=== PATIENT | female | born 1985 | race Caucasian/White ===

== ENCOUNTER 2017-07-02 09:34 | Inpatient (IN) | payer BC, OTHER ==
[~2017-07-02] VITALS: Ht 160 cm; Wt 58.5 kg
[2017-07-03] MEDS ORDERED: MIRALAX 17 GM POWD.PACK PO PRN (22:45)
[2017-07-03] MEDS ORDERED: NICOTINE 14 MG/24HR PATCH TD PRN (22:45)
[2017-07-03] MEDS ORDERED: diphenhydrAMINE 50 MG CAPSULE PO PRN (22:45)
[2017-07-03] MEDS ORDERED: LORAZEPAM 1 MG TABLET PO PRN ×2 (22:45)
[2017-07-03] MEDS ORDERED: NICOTINE POLACRILEX 4 MG GUM-PK OF TEN BC PRN (22:45)
[2017-07-03] MEDS ORDERED: IBUPROFEN 400 MG TABLET PO PRN (22:45)
[2017-07-03] MEDS ORDERED: LORAZEPAM 2 MG/1 ML VIAL IM PRN (22:45)
[2017-07-03] MEDS ORDERED: MAG HYDROX/AL HYDROX/SIMETH 30 ML LIQUID UDC PO PRN (22:45)
[2017-07-03] MEDS ORDERED: MAGNESIUM HYDROXIDE 30 ML LIQUID UDC PO PRN (22:45)
[2017-07-03] MEDS ORDERED: LOPERAMIDE HCL 2 MG CAPSULE PO PRN ×2 (22:45)
[2017-07-03] MEDS ORDERED: DICYCLOMINE HCL 20 MG TABLET PO PRN (22:45)
[2017-07-03 23:11] LABS: *URINE HCG, QUAL NEGATIVE (NEGATIVE)
[2017-07-03 23:11] LABS: BASOPHILS # (AUTO) 0.1 K/uL (0.0-8.0); BASOPHILS % (AUTO) 0.5 % (0.0-2.0); EOSINOPHILS # (AUTO) 0.1 K/uL (0.0-0.7); EOSINOPHILS % (AUTO) 1.3 % (0.0-7.0); HEMATOCRIT 43.3 % (31.2-41.9); HEMOGLOBIN 14.7 g/dL (10.9-14.3); LYMPHOCYTES # (AUTO) 2.5 K/uL (20.0-40.0); LYMPHOCYTES % (AUTO) 22.8 % (20.5-51.5); MEAN CORPUSCULAR HEMOGLOBIN 32.3 uug (24.7-32.8); MEAN CORPUSCULAR HGB CONC 34 g/dL (32.3-35.6); MONOCYTES # (AUTO) 0.7 K/uL (2.0-10.0); MONOCYTES % (AUTO) 6.4 % (0.0-11.0); NEUTROPHILS # (AUTO) 7.5 K/uL (1.8-8.9); PLATELET COUNT (AUTO) 234 K/uL (179-408); RED BLOOD CELL COUNT(AUTO) 4.56 MIL/uL (3.63-4.92); WHITE BLOOD COUNT (AUTO) 10.8 K/uL (3.8-11.8)
[2017-07-03 23:13] LABS: *AMPHETAMINE, URINE NEGATIVE (NEGATIVE); *BARBITURATE, URINE NEGATIVE (NEGATIVE); *CANNABINOID, URINE NEGATIVE (NEGATIVE); *COCCAINE, URINE NEGATIVE (NEGATIVE); *OPIATE, URINE NEGATIVE (NEGATIVE); *PHENCYCLIDINE SCREEN,URINE NEGATIVE (NEGATIVE)
[2017-07-03 23:27] LABS: ALANINE AMINOTRANSFERASE 93 U/L (14-59); ALKALINE PHOSPHATASE 82 U/L (50-136); AMYLASE 44 U/L (25-115); ASPARTATE AMINOTRANSFERASE 96 U/L (15-37); BILIRUBIN,TOTAL 0.3 mg/dL (0.2-1.0); CARBON DIOXIDE 26 mmol/L (21-32); CHLORIDE 100 mmol/L (98-107); GLUCOSE 99 mg/dL (74-106); MAGNESIUM 1.5 mg/dL (1.8-2.4); TOTAL PROTEIN, SERUM 7.4 g/dL (6.4-8.2); UREA NITROGEN, BLOOD 13 mg/dL (7-18)
[2017-07-03] MEDS ORDERED: MAGNESIUM OXIDE 400 MG TABLET PO ONE (23:30)
[2017-07-03] MEDS ORDERED: LORAZEPAM 1 MG TABLET PO SCH (23:30)
[2017-07-03 23:40] LABS: ETHANOL < 3 MG/DL (0-0)
[2017-07-03] MEDS ORDERED: THIAMINE HCL 200 MG/2 ML VIAL IM ONE (23:45)
[2017-07-04] VITALS: BP 106/78
[2017-07-04 04:00] VITALS: BP 98/71
[2017-07-04 08:00] VITALS: BP 131/94
[2017-07-04] MEDS: ONDANSETRON ODT 4 MG TAB.RAPDIS SL PRN (08:55)
[2017-07-04] MEDS: MULTIVITAMINS,THERAPEUTIC TABLET PO SCH (08:55)
[2017-07-04] MEDS: THIAMINE HCL 100 MG TABLET PO SCH (08:55)
[2017-07-04] MEDS: FOLIC ACID 1 MG TABLET PO SCH (08:55)
[2017-07-04] MEDS: LORAZEPAM 1 MG TABLET PO SCH ×4 (08:55→21:54)
[2017-07-04] MEDS ORDERED: TUBERCULIN,PURIF.PROT.DERIV. 5 TU/0.1 ML TEST ID ONE (09:00)
[2017-07-04 12:24] VITALS: BP 136/93
[2017-07-04] MEDS ORDERED: QUETIAPINE FUMARATE 25 MG TABLET PO PRN (13:45)
[2017-07-04 16:00] VITALS: BP 108/87
[2017-07-04 20:00] VITALS: BP 110/74
[2017-07-05] VITALS: BP 120/71
[2017-07-05 04:00] VITALS: BP 124/76
[2017-07-05 08:00] VITALS: BP 125/81
[2017-07-05 08:11] LABS: HEPATITIS B SURFACE AG Negative (Negative)
[2017-07-05] MEDS: THIAMINE HCL 100 MG TABLET PO SCH (08:30)
[2017-07-05] MEDS: FOLIC ACID 1 MG TABLET PO SCH (08:30)
[2017-07-05] MEDS: MULTIVITAMINS,THERAPEUTIC TABLET PO SCH (08:30)
[2017-07-05] MEDS: LORAZEPAM 1 MG TABLET PO SCH ×3 (08:30→20:16)
[2017-07-05 12:00] VITALS: BP 117/75
[2017-07-05] MEDS: ONDANSETRON 4 MG/2 ML VIAL IM PRN (13:10)
[2017-07-05] MEDS: METHOCARBAMOL 750 MG TABLET PO PRN (13:10)
[2017-07-05 16:00] VITALS: BP 137/92
[2017-07-05 20:13] VITALS: BP 126/84
[2017-07-05] MEDS: GABAPENTIN 300 MG CAPSULE PO SCH (20:16)
[2017-07-05] MEDS: IBUPROFEN 600 MG TABLET PO PRN (21:26)
[2017-07-05] MEDS ORDERED: LORAZEPAM 1 MG TABLET PO ONE (21:30)
[2017-07-05] MEDS ORDERED: LORAZEPAM 1 MG TABLET PO PRN ×2 (21:45)
[2017-07-06 00:20] VITALS: BP 106/63
[2017-07-06 04:15] VITALS: BP 103/74
[2017-07-06 08:00] VITALS: BP 132/84
[2017-07-06] MEDS: THIAMINE HCL 100 MG TABLET PO SCH (08:25)
[2017-07-06] MEDS: GABAPENTIN 300 MG CAPSULE PO SCH ×3 (08:25→20:24)
[2017-07-06] MEDS: MULTIVITAMINS,THERAPEUTIC TABLET PO SCH (08:25)
[2017-07-06] MEDS: FOLIC ACID 1 MG TABLET PO SCH (08:25)
[2017-07-06] MEDS ORDERED: PNEUMOCOCCAL 23-VAL P-SAC VAC 0.5 ML VIAL IM ONE (09:00)
[2017-07-06] MEDS ORDERED: LORAZEPAM 1 MG TABLET PO SCH ×2 (09:00→21:00)
[2017-07-06] MEDS: ONDANSETRON 4 MG/2 ML VIAL IM PRN (10:17)
[2017-07-06 12:00] VITALS: BP 132/84
[2017-07-06] MEDS: TERBINAFINE CREAM 24 GM TUBE TP SCH (12:00)
[2017-07-06] MEDS: LORAZEPAM 1 MG TABLET PO SCH ×2 (12:25→16:34)
[2017-07-06 16:00] VITALS: BP 95/75
[2017-07-06 20:00] VITALS: BP 133/86
[2017-07-06] MEDS: METHOCARBAMOL 750 MG TABLET PO PRN (20:24)
[2017-07-06] MEDS: QUETIAPINE FUMARATE 25 MG TABLET PO PRN (22:07)
[2017-07-07 04:00] VITALS: BP_SYST 103; BP_SYST 106; BP_DIAS 65; BP_DIAS 67
[2017-07-07 08:00] VITALS: BP 122/69
[2017-07-07] MEDS: ONDANSETRON ODT 4 MG TAB.RAPDIS SL PRN (08:11)
[2017-07-07] MEDS: THIAMINE HCL 100 MG TABLET PO SCH (08:16)
[2017-07-07] MEDS: METHOCARBAMOL 750 MG TABLET PO PRN ×2 (08:17→17:21)
[2017-07-07] MEDS: MULTIVITAMINS,THERAPEUTIC TABLET PO SCH (08:17)
[2017-07-07] MEDS: IBUPROFEN 600 MG TABLET PO PRN (08:17)
[2017-07-07] MEDS: GABAPENTIN 300 MG CAPSULE PO SCH ×3 (08:17→20:12)
[2017-07-07] MEDS: FOLIC ACID 1 MG TABLET PO SCH (08:17)
[2017-07-07] MEDS: TERBINAFINE CREAM 24 GM TUBE TP SCH (08:19)
[2017-07-07] MEDS ORDERED: LORAZEPAM 1 MG TABLET PO SCH ×3 (09:00→21:00)
[2017-07-07 12:00] VITALS: BP 129/91
[2017-07-07] MEDS: DOCUSATE SODIUM 250 MG CAPSULE PO SCH (12:18)
[2017-07-07] MEDS: LIDOCAINE 5% PATCH TD SCH (12:18)
[2017-07-07] MEDS: DICYCLOMINE HCL 20 MG TABLET PO SCH ×2 (14:25→20:13)
[2017-07-07] MEDS: KETOROLAC TROMETHAMINE 30 MG INJ IM PRN (14:26)
[2017-07-07 16:00] VITALS: BP 133/97
[2017-07-07] MEDS: ONDANSETRON 4 MG/2 ML VIAL IM PRN (17:16)
[2017-07-07] MEDS: ACETAMINOPHEN 325 MG TABLET PO PRN ×2 (17:21→21:01)
[2017-07-07 20:00] VITALS: BP 133/87
[2017-07-07] MEDS ORDERED: MAGNESIUM CITRATE 296 ML BOTTLE PO PRN (20:45)
[2017-07-07] MEDS ORDERED: FLEET ENEMA 133 ML BOTTLE RC PRN (20:45)
[2017-07-07] MEDS: QUETIAPINE FUMARATE 25 MG TABLET PO PRN (21:52)
[2017-07-08 08:00] VITALS: BP 117/63
[2017-07-08] MEDS: FOLIC ACID 1 MG TABLET PO SCH (08:25)
[2017-07-08] MEDS: MULTIVITAMINS,THERAPEUTIC TABLET PO SCH (08:25)
[2017-07-08] MEDS: GABAPENTIN 300 MG CAPSULE PO SCH ×3 (08:25→21:05)
[2017-07-08] MEDS: THIAMINE HCL 100 MG TABLET PO SCH (08:25)
[2017-07-08] MEDS: DOCUSATE SODIUM 250 MG CAPSULE PO SCH (08:25)
[2017-07-08] MEDS: TERBINAFINE CREAM 24 GM TUBE TP SCH (08:26)
[2017-07-08] MEDS: LIDOCAINE 5% PATCH TD SCH (08:26)
[2017-07-08] MEDS: DICYCLOMINE HCL 20 MG TABLET PO SCH ×3 (08:26→21:05)
[2017-07-08] MEDS ORDERED: LORAZEPAM 1 MG TABLET PO SCH (09:00)
[2017-07-08] MEDS: IBUPROFEN 600 MG TABLET PO PRN ×2 (11:15→21:05)
[2017-07-08 12:00] VITALS: BP 118/70
[2017-07-08] MEDS ORDERED: ASPIRIN/ACETAMINOPHEN/CAFFEINE TABLET PO PRN (13:00)
[2017-07-08] MEDS ORDERED: CARBAMIDE PEROXIDE OTIC DROP 15 ML BOTTLE EACH EAR PRN (13:45)
[2017-07-08] MEDS: LORAZEPAM 1 MG TABLET PO SCH ×2 (14:14→21:06)
[2017-07-08] MEDS ORDERED: GABA-534 PO ×2 (15:22)
[2017-07-08] MEDS ORDERED: Aspirin/Acetaminophen/Caffeine PO (15:22)
[2017-07-08] MEDS ORDERED: IBUP-1955 PO (15:22)
[2017-07-08] MEDS ORDERED: LIDO30AD10 TD (15:22)
[2017-07-08] MEDS ORDERED: PROP20TA19 PO (15:22)
[2017-07-08] MEDS ORDERED: METH-406 PO (15:22)
[2017-07-08] MEDS ORDERED: DICY20TA28 PO (15:22)
[2017-07-08 16:00] VITALS: BP 135/80
[2017-07-08] MEDS: PROPRANOLOL HCL 20 MG TABLET PO SCH (21:04)
[2017-07-08] MEDS: QUETIAPINE FUMARATE 25 MG TABLET PO PRN (21:05)
[2017-07-08] MEDS: KETOROLAC TROMETHAMINE 30 MG INJ IM PRN (21:22)
[2017-07-08 21:36] VITALS: BP 138/94
[2017-07-09 01:20] VITALS: BP 138/94
[2017-07-09 04:03] VITALS: BP 138/94
[2017-07-09 08:00] VITALS: BP 110/82
[2017-07-09] MEDS: LIDOCAINE 5% PATCH TD SCH (08:24)
[2017-07-09] MEDS: TERBINAFINE CREAM 24 GM TUBE TP SCH (08:25)
[2017-07-09] MEDS: DICYCLOMINE HCL 20 MG TABLET PO SCH ×3 (08:25→20:57)
[2017-07-09] MEDS: MULTIVITAMINS,THERAPEUTIC TABLET PO SCH (08:25)
[2017-07-09] MEDS: FOLIC ACID 1 MG TABLET PO SCH (08:25)
[2017-07-09] MEDS: DOCUSATE SODIUM 250 MG CAPSULE PO SCH (08:25)
[2017-07-09] MEDS: PROPRANOLOL HCL 20 MG TABLET PO SCH ×2 (08:25→20:57)
[2017-07-09] MEDS: THIAMINE HCL 100 MG TABLET PO SCH (08:25)
[2017-07-09] MEDS: GABAPENTIN 300 MG CAPSULE PO SCH ×3 (08:25→20:58)
[2017-07-09] MEDS ORDERED: LORAZEPAM 1 MG TABLET PO SCH (09:00)
[2017-07-09 12:00] VITALS: BP 116/96
[2017-07-09] MEDS: KETOROLAC TROMETHAMINE 30 MG INJ IM PRN (14:03)
[2017-07-09 16:00] VITALS: BP 129/84
[2017-07-09 20:00] VITALS: BP 120/79
[2017-07-09] MEDS: METHOCARBAMOL 750 MG TABLET PO PRN (20:57)
[2017-07-09] MEDS: QUETIAPINE FUMARATE 25 MG TABLET PO PRN (20:59)
[2017-07-10 08:00] VITALS: BP 103/63
[2017-07-10] MEDS: LIDOCAINE 5% PATCH TD SCH (08:08)
[2017-07-10 08:09] VITALS: BP 105/68
[2017-07-10] MEDS: GABAPENTIN 300 MG CAPSULE PO SCH (08:09)
[2017-07-10] MEDS: DOCUSATE SODIUM 250 MG CAPSULE PO SCH (08:09)
[2017-07-10] MEDS: PROPRANOLOL HCL 20 MG TABLET PO SCH (08:09)
[2017-07-10] MEDS: FOLIC ACID 1 MG TABLET PO SCH (08:09)
[2017-07-10] MEDS: DICYCLOMINE HCL 20 MG TABLET PO SCH (08:09)
[2017-07-10] MEDS: MULTIVITAMINS,THERAPEUTIC TABLET PO SCH (08:09)
[2017-07-10] MEDS: THIAMINE HCL 100 MG TABLET PO SCH (08:09)
[2017-07-10] MEDS: TERBINAFINE CREAM 24 GM TUBE TP SCH (08:15)
== END 2017-07-10 09:35 | disposition other institution (70) | DRG 895 ==
LOC: SRC 07-03 21:48
PROVIDERS: ADMIT Internal Medicine; ATTEND Internal Medicine
PROC: HZ2ZZZZ Detoxification Services for Substance Abuse Treatment (ICD-10-PCS; principal; 2017-07-03)
PROC: HZ41ZZZ Group Counseling for Substance Abuse Treatment, Behavioral (ICD-10-PCS; 2017-07-04)
PROC: HZ31ZZZ Individual Counseling for Substance Abuse Treatment, Behavioral (ICD-10-PCS; 2017-07-05)
PROC: 0JJW3ZZ Inspection of Lower Extremity Subcutaneous Tissue and Fascia, Percutaneous Approach (ICD-10-PCS; 2017-07-09)
DX: F10.239 Alcohol dependence with withdrawal, unspecified (principal); K70.10 Alcoholic hepatitis without ascites; E83.42 Hypomagnesemia; B35.6 Tinea cruris; E87.1 Hypo-osmolality and hyponatremia; D64.9 Anemia, unspecified; E86.1 Hypovolemia; F13.129 Sedative, hypnotic or anxiolytic abuse with intoxication, unspecified; F17.210 Nicotine dependence, cigarettes, uncomplicated; G43.909 Migraine, unspecified, not intractable, without status migrainosus; G89.29 Other chronic pain; Y90.0 Blood alcohol level of less than 20 mg/100 ml; Z91.5 Personal history of self-harm; Z83.3 Family history of diabetes mellitus; Z82.49 Family history of ischemic heart disease and other diseases of the circulatory system; L43.9 Lichen planus, unspecified; M54.5 Low back pain; Z91.89 Other specified personal risk factors, not elsewhere classified; R22.42 Localized swelling, mass and lump, left lower limb
CPT/HCPCS: 36415; 70030-TC; 76881; 80307; 80346; 83735; 84703; 85025; 86580; 86592; 86705; 86803; 87340; 87806; 90732; A9150; G0480; J1885; J2405; J3411; Q0162